=== PATIENT | male | born 1950 | race Caucasian/White ===

== ENCOUNTER → 2019-12-12 | Day surgery (SDC) | payer MEDICARE, OTHER ==
[2019-12-07 14:07] LABS: BASOPHILS # (AUTO) 0.1 (0.0-0.1); BASOPHILS % 1.1 % (0.0-1.0); EOSINOPHILS # (AUTO) 0.2 (0.0-0.4); EOSINOPHILS % 2.6 % (0.0-6.0); HEMATOCRIT 40.3 % (38.2-49.6); HEMOGLOBIN 12.5 g/dL (14.0-18.0); LYMPHOCYTES # (AUTO) 2.8 (1.0-3.2); LYMPHOCYTES % 40.7 % (18.0-39.1); MEAN CORPUSCULAR HEMOGLOBIN 28.9 pg (28-32); MEAN CORPUSCULAR VOLUME 93.3 fL (81-99); MONOCYTES # (AUTO) 0.6 (0.2-0.8); MONOCYTES % 8.3 % (4.4-11.3); NEUTROPHILS # (AUTO) 3.3 (2.1-6.9); PLATELET COUNT 199 x10e3/uL (140-360); RED BLOOD COUNT 4.32 x10e6/uL (4.3-5.7)
--- NOTE | 2019-12-07 15:12 | Diagnostic Imaging Report ---
EXAMINATION: PA and lateral views of the chest. COMPARISON: None CLINICAL HISTORY: Preoperative examination for sinus surgery DISCUSSION: The lungs are well inflated. No focal airspace consolidation, pleural effusion, or pneumothorax. Cardiomediastinal contour and pulmonary vasculature are within normal limits. No acute osseous abnormalities. IMPRESSION: No acute cardiopulmonary abnormalities. Signed by: Dr. Tuan Loco M.D. on 12/07/2019 3:09 PM
[~2019-12-12] MED LIST: ADVIL200 M1 PO; DEXAMETHASONE SOD PHOS INJ 4 MG/ML VIAL ONE; EPHEDRINE SULFATE INJ 50 MG/ML VIAL ONE; FENTANYL CITRATE/PF 100MCG/2 ML INJ ONE; GLYCOPYRROLATE INJ 0.2 MG/ML VIAL ONE; LIDOCAINE 1% W/EPINEPHRINE 20 ML VIAL ONE; LIDOCAINE HCL 2% LOCAL INJ 5 ML SDV VIAL INJ ONE; NEOSTIGMINE 1 MG/ML 10ML VIAL ONE; ONDANSETRON HCL INJ 2MG/ML 2ML 2 MG/ML VIAL ONE; OXYMETAZOLINE HCL 0.05% NAS 1 SPRAY BTL ONE; PROBIOTIC & AC1 EACH PO; PROPOFOL IV EMULSION 10 MG/ML 20 ML VIAL ONE; SEVOFLURANE INHAL SOLN 250 ML PEN BTL ONE; TRIPLE HELIX COL1 GM PO; VITAMIN C500 M6 PO
[2019-12-12 09:05] VITALS: BP 138/78
--- NOTE | 2019-12-12 11:32 | Operative Report ---
DATE OF PROCEDURE: 12/12/2019 SURGEON: Fredy Coffman MD PREOPERATIVE DIAGNOSIS: Chronic left maxillary sinusitis. Chronic left ethmoid sinusitis. POSTOPERATIVE DIAGNOSIS: Chronic left maxillary sinusitis. Chronic left ethmoid sinusitis. PROCEDURE: Functional endoscopic sinus surgery (left maxillary antrostomy, left anterior ethmoidectomy). SIGNIFICANT FINDINGS: [id number] diffuse mucosal inflammation of the left anterior ethmoid sinus and left maxillary sinus antrum with scant purulence. Right side appears clear. ANESTHESIA: General endotracheal tube anesthesia. SPECIMENS REMOVED: Sinus contents. ESTIMATED BLOOD LOSS: 20 mL. COMPLICATIONS: None. INDICATIONS: The patient is a 69-year-old white male with two months history of left-sided sinus pain, nasal obstruction and purulent rhinorrhea. The symptoms began after undergoing a dental procedure in August of 2019. He has been refractory to multiple course of antibiotics, Claritin-D, and nasal saline. Nasal endoscopy revealed purulence in the left middle meatus. CT of the sinus revealed total opacification of the left maxillary sinus and the left anterior ethmoid sinus. He is scheduled for functional endoscopic sinus surgery on the left side for the treatment of chronic left maxillary and anterior ethmoid sinusitis. The risks and complications of the procedures were thoroughly discussed with the patient and include infection, bleeding, scarring, failure to improve, need for additional operation(s), persistent sinus infections and sinus problems, damage to the visual pathways including to the intraorbital contents resulting in double vision and possibly blindness, damage to brain, leakage of cerebrospinal fluid, exsanguination, inability to smell or taste, chronic pain, abnormal appearance of the external nose, septal perforation, need for blood transfusions, damage to surrounding nerves, blood vessels, and muscles. He fully understands and gives consent. DESCRIPTION OF PROCEDURE: The patient was taken to the operating room and placed supine on the operating table where general anesthesia was achieved through orotracheal intubation. Eyes were taped. Cottonoid pledgets soaked with Afrin were then inserted into the nose bilaterally. The face was prepped and draped in the usual sterile fashion. Following this, the cottonoid pledgets were then removed. Examination with the 0-degree nasal endoscope revealed the right side to be clear with normal anatomy with no evidence of masses, polyps, inflammation, or purulence. The septum appeared to be straight. Examination of the left side also revealed fairly normal findings. Injection with 1% lidocaine with 1:100,000 epinephrine was injected into the junction of the left middle turbinate and the lateral nasal wall as well as the left middle turbinate as well as the uncinate process. Cottonoid pledgets soaked with Afrin were then inserted into the left middle meatus and were then removed. The uncinate process was then taken down with the backbiting instruments and Onesimo-Cut instruments. Both the vertical and horizontal portions of the uncinate were removed. The natural ostium of the left maxillary sinus was identified and was enlarged to 1-1.5 cm in diameter with backbiters, microdebrider, and Onesimo-Cut instruments. No copious purulence was found in the left maxillary sinus, although examination revealed scant amount of purulence. The mucosa within the left maxillary sinus appeared to be mildly to moderately diffusely inflamed. There was no evidence of allergic mucin, polyps, or any tumors within the left maxillary sinus. The left anterior ethmoidectomy was then performed with a J curette, Onesimo-Cut instruments and a microdebrider taking care to avoid trauma to the lamina papyracea or base of skull. There was no evidence of polyps or purulence within the left anterior ethmoid sinus, though the mucosa appeared to be mildly to moderately inflamed. Following this, hemostasis was obtained with cottonoid pledgets soaked with Afrin. There was no evidence of dehiscence of the lamina papyracea with gentle ballottement of the left eye. The patient was then awakened in the operating room, extubated, and taken to the recovery room in good condition. MD MAXIME Cordero/SARIL /[id number] CHERYL
== END | disposition home or self-care (01) ==
LOC: OR 05:35
PROVIDERS: ATTEND Otolaryngology
DX: J32.0 Chronic maxillary sinusitis (principal); J32.2 Chronic ethmoidal sinusitis; R00.1 Bradycardia, unspecified; M19.90 Unspecified osteoarthritis, unspecified site; Z01.810 Encounter for preprocedural cardiovascular examination; Z01.812 Encounter for preprocedural laboratory examination; Z01.818 Encounter for other preprocedural examination; Z11.59 Encounter for screening for other viral diseases; Z87.891 Personal history of nicotine dependence
CPT/HCPCS: 31254; 31256; 36415; 71046; 85025; 88304; 93005; J1100; J2001; J2405; J2704; J2710; J3010; U0002